=== PATIENT | female | born 1970 | race Hispanic/Latino ===

== ENCOUNTER 2019-02-18 07:29 | Emergency (ER) | payer SELFPAY ==
[2019-02-18 08:02] LABS: POTASSIUM 3.8 mmol/L (3.5-5.1)
[2019-02-18 08:17] LABS: T4 (THYROXINE) 6.7 ug/dL (4.7-13.3); THYROID STIMULATING HORMONE 1.68 uIU/mL (0.36-3.74)
== END 2019-02-18 09:06 | disposition home or self-care (01) ==
LOC: EDH 07:29
DX: R42 Dizziness and giddiness (principal); R00.2 Palpitations; T50.995A Adverse effect of other drugs, medicaments and biological substances, initial encounter; E78.00 Pure hypercholesterolemia, unspecified; Z88.5 Allergy status to narcotic agent; Y92.89 Other specified places as the place of occurrence of the external cause
CPT/HCPCS: 36415; 80048; 84436; 84443; 93005